=== PATIENT | female | born 2000 | race African-American/Black ===

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

== ENCOUNTER 2020-02-26 00:28 | Emergency (ER) | payer SELFPAY ==
[~2020-02-26] VITALS: Ht 157.5 cm; Wt 77.0 kg
[~2020-02-26 00:28] MED LIST: OFLO5DRO7 EACH EAR
[2020-02-26] MEDS ORDERED: CEPH-264 PO (02:42)
--- NOTE | 2020-02-26 02:43 | PHYS DOC ---
Past Medical History Past Medical History: No Pertinent History Past Surgical History: Tonsillectomy, Other Additional Past Surgical Histo: cyst in abd, tubes in ears Smoking Status: Never Smoker Alcohol Use: None Drug Use: None General Adult EDM: Chief Complaint: INSECT BITE HPI: HPI: Patient is a 19 year old female presents for evaluation after an insect bite. Patient states on the night that she was bitten on her right lower extremity. On exam there is circular wound 6 x 6 cm. Centrally there is an abrasion surrounded by erythema. Patient brought the spider with her it appears to be a brown recluse. Review of Systems: Review of Systems: Constitutional: Denies fever or chills. [] Eyes: Denies change in visual acuity. [] HENT: Denies nasal congestion or sore throat. [] Respiratory: Denies cough or shortness of breath. [] Cardiovascular: Denies chest pain or edema. [] GI: Denies abdominal pain, nausea, vomiting, bloody stools or diarrhea. [] : Denies dysuria. [] Musculoskeletal: Denies back pain or joint pain. [] Integument: Positive insect bite positive cellulitis Neurologic: Denies headache, focal weakness or sensory changes. [] Endocrine: Denies polyuria or polydipsia. [] Lymphatic: Denies swollen glands. [] Psychiatric: Denies depression or anxiety. [] Heart Score: Risk Factors: Risk Factors: DM, Current or recent (<one month) smoker, HTN, HLP, family history of CAD, obesity. Risk Scores: Score 0 - 3: 2.5% MACE over next 6 weeks - Discharge Home Score 4 - 6: 20.3% MACE over next 6 weeks - Admit for Clinical Observation Score 7 - 10: 72.7% MACE over next 6 weeks - Early Invasive Strategies Allergies: Allergies: Allergies Coded Allergies Type Severity Reaction Last Updated Verified No Known Drug Allergies 11/21/16 No Physical Exam: PE: Constitutional: Well developed, well nourished, no acute distress, non-toxic appearance. [] HENT: Normocephalic, atraumatic, bilateral external ears normal, oropharynx moist, no oral exudates, nose normal. [] Eyes: PERRLA, EOMI, conjunctiva normal, no discharge. [] Neck: Normal range of motion, no tenderness, supple, no stridor. [] Cardiovascular:Heart rate regular rhythm, no murmur [] Lungs & Thorax: Bilateral breath sounds clear to auscultation [] Abdomen: Bowel sounds normal, soft, no tenderness, no masses, no pulsatile masses. [] Skin: 6 x 6 cm wound right lower extremity on the calf. There is central lesion with surrounding erythema. Area is nonfluctuant central lesion is not necrotic Back: No tenderness, no CVA tenderness. [] Extremities: No tenderness, no cyanosis, no clubbing, ROM intact, no edema. [] Neurologic: Alert and oriented X 3, normal motor function, normal sensory function, no focal deficits noted. [] Psychologic: Affect normal, judgement normal, mood normal. [] Current Patient Data: Vital Signs: Vital Signs Date Time Temp Pulse Resp B/P (MAP) Pulse Ox O2 Delivery O2 Flow Rate FiO2 02/26/20 01:51 98.1 93 22 118/69 (85) 100 Room Air 98.1 EKG: EKG: [] Radiology/Procedures: Radiology/Procedures: [] Course & Med Decision Making: Course & Med Decision Making Pertinent Labs and Imaging studies reviewed. (See chart for details) [] Dragon Disclaimer: Dragon Disclaimer: This electronic medical record was generated, in whole or in part, using a voice recognition dictation system. Departure Departure Impression: Primary Impression: Insect bite Disposition: 01 HOME, SELF-CARE Condition: STABLE Referrals: NO PCP (PCP) Patient Instructions: Brown Recluse Spider Bite Scripts Cephalexin (KEFLEX) 500 Mg Capsule 500 MG PO QID for 10 Days, #40 CAP Prov: KEMI CONRAD DO 02/26/20 Justicifation of Admission Dx: Justifications for Admission: Justification of Admission Dx: N/A KEMI CONRAD DO Feb 26, 2020 02:43
[2020-02-26 02:49] VITALS: BP 124/58
== END 2020-02-26 02:52 | disposition home or self-care (01) ==
LOC: ER 00:28
DX: S80.861A Insect bite (nonvenomous), right lower leg, initial encounter (principal); Z90.89 Acquired absence of other organs; Z98.890 Other specified postprocedural states; W57.XXXA Bitten or stung by nonvenomous insect and other nonvenomous arthropods, initial encounter; Y92.89 Other specified places as the place of occurrence of the external cause
CPT/HCPCS: 99283

== ENCOUNTER 2020-03-09 00:15 | Emergency (ER) | payer SELFPAY ==
[~2020-03-09] VITALS: Ht 157.5 cm; Wt 81.8 kg
[~2020-03-09 00:15] MED LIST changes: +CEPH-264 PO
--- NOTE | 2020-03-09 00:57 | PHYS DOC ---
Past Medical History Past Medical History: No Pertinent History Past Surgical History: Tonsillectomy, Other Additional Past Surgical Histo: cyst in abd, tubes in ears Smoking Status: Never Smoker Alcohol Use: None Drug Use: None General Adult EDM: Chief Complaint: INSECT BITE HPI: HPI: Patient is a 19 year old female presents for reevaluation of spider bite wound to right calf. Patient had been initially seen approximately 10 days ago for initial injury and was started on empiric antibiotics. Patient reports wound has still remained open and has been draining. Denies any fever or chills. Denies redness or swelling. Reports drainage coming from open ulcerated area. Denies . There was concern that initial bite was from a brown recluse spider. Review of Systems: Review of Systems: Constitutional: Denies fever or chills Eyes: Denies redness or eye pain HENT: Denies nasal congestion or sore throat Respiratory: Denies cough or shortness of breath Cardiovascular: Denies chest pain or palpitations GI: Denies abdominal pain, nausea, or vomiting : Denies dysuria or hematuria Musculoskeletal: Denies back pain or joint pain Integument: Reports right calf wound Neurologic: Denies headache, focal weakness or sensory changes Complete systems were reviewed and found to be within normal limits, except as documented in this note. Current Medications: Current Medications Medications (Trade) Dose Ordered Sig/Elizabeth Start Time Stop Time Status Last Admin Dose Admin Mupirocin (Bactroban) 1 janes 1X ONCE 03/09/20 01:00 03/09/20 01:01 UNV Allergies: Allergies: Allergies Coded Allergies Type Severity Reaction Last Updated Verified No Known Drug Allergies 11/21/16 No Physical Exam: PE: Constitutional: Well developed, well nourished, no acute distress, non-toxic appearance HENT: Normocephalic, atraumatic Eyes: Conjunctiva normal, no discharge Neck: Normal range of motion, supple Lungs & Thorax: No respiratory distress, equal chest rise and fall Skin: Warm, dry, no erythema, open ulcerated area measuring 1 cm x 1 cm, indurated area approximately 2 cm x 2 cm, no active drainage, granulation tissue noted centrally. Extremities: No tenderness, ROM intact, no edema Neurologic: Alert and oriented X 3, no focal deficits noted Psychologic: Affect normal, judgment normal EKG: EKG: [] Radiology/Procedures: Radiology/Procedures: [] Course & Med Decision Making: Course & Med Decision Making Patient presents for reexamination of previously evaluated spider bite to right calf which was thought to be secondary to a brown recluse bite. Patient had finished empiric antibiotic therapy. Reports it has not completely healed. Patient advised this is not uncommon for these type of bites. No active infection appreciated. Will treat with topical Bactroban and sterile dressing. Wound cleaned and dressed. Patient stable for discharge with outpatient follow-up with PCP. PCP referral pamphlet provided. Discussed findings and plan with patient, who acknowledges understanding and agreement. Dragon Disclaimer: Dragon Disclaimer: This electronic medical record was generated, in whole or in part, using a voice recognition dictation system. Departure Departure Impression: Primary Impression: Encounter for wound re-check Additional Impression: History of venomous spider bite Disposition: 01 HOME, SELF-CARE Condition: STABLE Referrals: NO PCP (PCP) Patient Instructions: Spider Bite, [id number], Wound Care, [id number], Wound Check Additional Instructions: Do not soak your wound. You may shower. Clean wound daily with soap and water. Change dressing 2 times daily. Use prescribed antibiotic ointment with each dressing change. Scripts Mupirocin (MUPIROCIN OINTMENT) 22 Gm Oint...g. 1 JANES TP TID for WOUND CARE for 7 Days, #1 TUBE Prov: MARSHAL BSUTOS DO 03/09/20 Justicifation of Admission Dx: Justifications for Admission: Justification of Admission Dx: N/A MARSHAL BUSTOS DO Mar 09, 2020 00:57
[2020-03-09] MEDS ORDERED: MUPI22OI2 TP (00:58)
[2020-03-09 01:06] VITALS: BP 112/74
[2020-03-09] MEDS ORDERED: MUPIROCIN 2 % TOPICAL CREAM 30GM TUBE. TP ONE (01:15)
== END 2020-03-09 01:12 | disposition home or self-care (01) ==
LOC: ER 00:15
DX: T63.331D Toxic effect of venom of brown recluse spider, accidental (unintentional), subsequent encounter (principal)
CPT/HCPCS: 99283